=== PATIENT | female | born 1960 | race Caucasian/White ===

== ENCOUNTER 2021-08-13 09:15 | Emergency (ER) | payer OTHER ==
[~2021-08-13] VITALS: Ht 165.1 cm; Wt 70.9 kg
[2021-08-13] MEDS ORDERED: LISI-894 PO (09:19)
[2021-08-13] MEDS ORDERED: HYDROCODONE/ACETAMINOPHEN 5-325 MG TABLET PO ONE (09:45)
[2021-08-13 11:42] VITALS: BP 118/73
[2021-08-13] MEDS ORDERED: IBUP-2070 PO (12:13)
[2021-08-13] MEDS ORDERED: LIDO1ADH83 TP (12:13)
== END 2021-08-13 12:36 | disposition home or self-care (01) ==
LOC: EMS 09:18
DX: S22.31XA Fracture of one rib, right side, initial encounter for closed fracture (principal); Z79.899 Other long term (current) drug therapy; I10 Essential (primary) hypertension; W18.39XA Other fall on same level, initial encounter; Y93.89 Activity, other specified; Y92.89 Other specified places as the place of occurrence of the external cause; Y99.8 Other external cause status
CPT/HCPCS: 71101; 99283; G0238

== ENCOUNTER 2024-04-22 16:15 | Emergency (ER) | payer MEDICARE, OTHER ==
[~2024-04-22] VITALS: Ht 165.1 cm; Wt 61.4 kg
[~2024-04-22 16:15] MED LIST: IBUP-1492 PO; LIDO1ADH83 TP; LISI-894 PO
[2024-04-22 16:18] VITALS: TEMP 97.9
[2024-04-22] MEDS ORDERED: CHOL500013 PO (18:05)
[2024-04-22] MEDS ORDERED: LISI20TA24 PO (18:05)
[2024-04-22 18:15] VITALS: BP 129/81; PULSE 78; RESP 17; O2SAT 98
[2024-04-22] MEDS: PERTUSS(ACELL),DIPH,TET/PF 0.5 ML SYRINGE [ADULT] IM. ONE (18:56)
[2024-04-22] MEDS: BACITRACIN 0.9 GM PACKET OINTMENT TP ONE (18:56)
[2024-04-22] MEDS ORDERED: BACI28.410 TP (19:05)
== END 2024-04-22 19:30 | disposition home or self-care (01) ==
LOC: EMS 16:15 → EDUNIT# 16:15 → EMS 19:30
DX: S61.211A Laceration without foreign body of left index finger without damage to nail, initial encounter (principal); I10 Essential (primary) hypertension; Z79.899 Other long term (current) drug therapy; W26.8XXA Contact with other sharp object(s), not elsewhere classified, initial encounter; Y93.89 Activity, other specified; Y92.89 Other specified places as the place of occurrence of the external cause; Y99.8 Other external cause status
CPT/HCPCS: 90471; 90715; 99283